=== PATIENT | female | born 1995 | race American Indian/Alaskan Native ===

== ENCOUNTER 2017-01-18 03:16 | Emergency (ER) | payer MEDICAID ==
[2017-01-18] MEDS ORDERED: TYLENOL ONE (03:35)
[2017-01-18 03:36] VITALS: BP 150/100
[2017-01-18] MEDS: TYLENOL PO ONE (03:39)
== END 2017-01-18 05:24 | disposition left against medical advice (07) ==
LOC: ED 03:16
DX: R07.9 Chest pain, unspecified (principal); Z53.21 Procedure and treatment not carried out due to patient leaving prior to being seen by health care provider
CPT/HCPCS: 93005; 93010

== ENCOUNTER 2017-01-18 12:46 | Emergency (ER) | payer MEDICAID ==
--- NOTE | 2017-01-18 16:44 | Emergency Department Report ---
HPI - General Chief Complaint: Upper Respiratory Infection Time Seen by Provider: 01/18/17 16:40 - HPI HPI: [id number] -English female comes in with complaint of productive cough with yellow mucus 1 week. Patient states that her chest is very sore after she coughs. She admits to fever and sore throat. Patient reports it is painful to swallow. Patient reports that she was seen here earlier this morning but left without being seen. She admits to nasal congestion and sneezing cough runny eyes. He presents here to travel her home ED Past Medical Hx - Past Medical History Previous Medical History?: No - Surgical History Past Surgical History?: No - Social History Smoking Status: Current Every Day Smoker Substance Use Type: None - Medications Home Medications: Home Medications Medication Instructions Recorded Confirmed Last Taken Type Azithromycin [Zithromax] 250 mg PO QDAY #6 tablet 01/18/17 Unknown Rx Cetirizine HCl [ZyrTEC] 10 mg PO QDAY #30 capsule 01/18/17 Unknown Rx Promethazine /Codeine 5 ml PO Q6H PRN #100 ml 01/18/17 Unknown Rx [Phenergan/Codeine 6.25-10 mg/5 ml] ED Review of Systems ROS: Stated complaint: COUGH/ CHEST PAIN Other details as noted in HPI Constitutional: chills, fever Eyes: eye pain ENT: throat pain Respiratory: cough Cardiovascular: chest pain Gastrointestinal: denies: abdominal pain, nausea, diarrhea Genitourinary: denies: urgency, dysuria, discharge Musculoskeletal: denies: back pain, joint swelling, arthralgia Physical Exam - Physical Exam Vital Signs: Vital Signs 01/18/17 13:07 Temperature 98.2 F Pulse Rate 86 Respiratory 20 Rate Blood Pressure 123/86 O2 Sat by Pulse 100 Oximetry Physical Exam: GENERAL: Alert and oriented x3, no apparent distress, Normal Gait, atraumatic. HEAD: Head is normocephalic and a-traumatic. EYES: Extra ocular muscles are intact. Pupils are equal, round, and reactive to light and accommodation. EARS: symetrical, atraumatic, non tender, ear canal clear and moderate cerumen, tympanic membrance non inflamed. gross auditory nml bilaterally. NOSE: Nose symetrical, Nontender,Nares appeared normal. MOUTH:Mouth is well hydrated and without lesions. Tonsils nonerythematous + swollen, _Uvula midline, Tongue not elevated. Mucous membranes are moist. Posterior pharynx clear, no exudate or lesions. Patent airways. NECK: Supple. Non edematous, No carotid bruits. No lymphadenopathy or thyromegaly. LUNGS: Symetrical with respiration, No wheezing, no rales or crackles, CTAB. Respiratory sounds HEART: S1, S2 present, regular rate and rhythm without murmur, no rubs, no gallops. EXTREMITIES/MUSCULOSKELETAL: No cyanosis, clubbing, rash, lesions or edema. Full ROM bilaterally. UELE Pulses 2+ bilaterally. LE and UE 5+ strength bilaterally NEUROLOGIC: No focal Deficit, Cranial nerves II through XII are grossly intact. No loss of sensation, No facial droop, PSYCHIATRIC: Mood is congruent with affect, denies suicidal or homicidal ideations. SKIN: Warm and dry, No lesions, No ulceration or induration present ED Course Vital Signs 01/18/17 13:07 Temperature 98.2 F Pulse Rate 86 Respiratory 20 Rate Blood Pressure 123/86 O2 Sat by Pulse 100 Oximetry - Reevaluation(s) Reevaluation #1: 01/18/17 17:53 Patient reports that she feels much better since having the [place]. ED Medical Decision Making - Medical Decision Making Assessment evaluated by this provider in fast track. We will order patient a [place] which she help with her cough as well as her chest pain and knee pain. We will discharge patient on antibiotics Claritin or Zyrtec's promethazine with codeine. She verbalized understanding Critical care attestation.: If time is entered above; I have spent that time in minutes in the direct care of this critically ill patient, excluding procedure time. ED Disposition Clinical Impression: URI (upper respiratory infection) Qualifiers: URI type: unspecified URI Qualified Code(s): J06.9 - Acute upper respiratory infection, unspecified Disposition: DISCHARGED TO HOME OR SELFCARE Is pt being admited?: No Does the pt Need Aspirin: No Condition: Stable Instructions: Upper Respiratory Infection (ED) Additional Instructions: Take antibiotics as prescribed using promethazine with codeine as prescribed take Zyrtec as prescribed. He did take Tylenol or Motrin for pain. Follow up to primary care provider we will refer you to one if he do not have one Prescriptions: Azithromycin [Zithromax] 250 mg PO QDAY #6 tablet Cetirizine HCl [ZyrTEC] 10 mg PO QDAY #30 capsule Promethazine /Codeine [Phenergan/Codeine 6.25-10 mg/5 ml] 5 ml PO Q6H PRN #100 ml PRN Reason: cough Referrals: PRIMARY CAREMD [Primary Care Provider] - 3-5 Days [facility] [Outside] - 3-5 Days DELIA SIBLEY MD [Staff Physician] - 3-5 Days Forms: Accompanied Note, Work/School Release Form(ED)
[2017-01-18] MEDS: NORCO 5/325 PO ONE (17:02)
[2017-01-18 18:08] VITALS: BP 121/84
== END 2017-01-18 18:06 | disposition home or self-care (01) ==
LOC: ED 12:46
DX: J06.9 Acute upper respiratory infection, unspecified (principal); F17.200 Nicotine dependence, unspecified, uncomplicated
CPT/HCPCS: 99282

== ENCOUNTER 2017-03-27 20:01 | Emergency (ER) | payer MEDICAID ==
[2017-03-27 20:19] VITALS: BP 118/72
[2017-03-27] MEDS ORDERED: TYLENOL ONE (21:23)
[2017-03-27] MEDS ORDERED: TYLENOL PO ONE (21:26)
--- NOTE | 2017-03-27 21:55 | Emergency Department Report ---
HPI - General Chief Complaint: Upper Respiratory Infection Time Seen by Provider: 03/27/17 22:35 - HPI HPI: Patient here reports that she has been having shaking in in her sleep, body aches and headache off and on and feels cold with sore throat at 10 out of 10. She also reports that she's been coughing. Denies any drooling or difficulty swallowing she just said it hurts when she swallows. She said this is been going on for 2 days. She also reports abdominal cramping on and off but none at present. Denies exposure to strep throat. She reported in triage that her stomach pain was severe but she is not having any stomach pain up in questioning. She says she took [id number] pain medication and it helps a little but sore throat came back. Denies any chest pain or shortness of breath. Denies any coughing, wheezing or stridor ED Past Medical Hx - Past Medical History Previous Medical History?: No - Surgical History Past Surgical History?: No - Family History Family history: no significant - Social History Smoking Status: Current Every Day Smoker Substance Use Type: None - Medications Home Medications: Home Medications Medication Instructions Recorded Confirmed Last Taken Type Azithromycin [Zithromax] 250 mg PO QDAY #6 tablet 01/18/17 Unknown Rx Cetirizine HCl [ZyrTEC] 10 mg PO QDAY #30 capsule 01/18/17 Unknown Rx Promethazine /Codeine 5 ml PO Q6H PRN #100 ml 01/18/17 Unknown Rx [Phenergan/Codeine 6.25-10 mg/5 ml] Ibuprofen [Motrin] 600 mg PO Q8H PRN #15 tablet 03/27/17 Unknown Rx Penicillin Vk [Veetids TAB] 500 mg PO TID #60 tablet 03/27/17 Unknown Rx ED Review of Systems ROS: Stated complaint: FLU SX/ABD PAIN Other details as noted in HPI Comment: All other systems reviewed and negative Constitutional: chills Eyes: denies: eye pain, eye discharge ENT: throat pain. denies: ear pain, congestion Respiratory: cough. denies: shortness of breath, SOB with exertion, SOB at rest , stridor, wheezing Cardiovascular: denies: chest pain, palpitations, edema, syncope Gastrointestinal: abdominal pain. denies: nausea, vomiting Genitourinary: denies: urgency, dysuria, frequency, hematuria, discharge Musculoskeletal: myalgia. denies: back pain, arthralgia Skin: denies: rash Neurological: headache. denies: numbness, paresthesias, confusion, abnormal gait, vertigo Physical Exam - Physical Exam Vital Signs: Vital Signs 03/27/17 20:13 Temperature 99.9 F H Pulse Rate 86 Respiratory 18 Rate Blood Pressure 118/72 O2 Sat by Pulse 100 Oximetry Vital Signs 03/27/17 03/27/17 20:13 23:21 Temperature 99.9 F H 99.0 F Pulse Rate 86 Respiratory 18 Rate Blood Pressure 118/72 O2 Sat by Pulse 100 Oximetry General: This is a 21-year-old female well-nourished well-developed in no acute distress. Physical Exam: Head: Normocephalic atraumatic Mouth: Moist, positive pharyngeal exudate and erythema. Uvula is midline and oral airway is patent. No facial swelling. No peritonsillar abscesses. Nose: NL mucosa. Maxillary and frontal sinuses nontender to palpate Neck: Supple, no C-spine tenderness, no tracheal deviation. Nontender to palpate. Positive anterior cervical adenopathy Ears: Bilateral TMs pearly garcia. Bilateral EAC without any redness swelling or drainage. Bilateral otitis nontender to palpate Abdomen: Soft, nontender to palpate in all quadrants, normal bowel sounds in all quadrant and negative CVA tenderness bilaterally. Neurological: GCS of 15, alert and oriented 3. Speech is clear and fluid. Normal gait. No motor or sensory deficit. Normal reflexes. No facial drooping. No pronator drift and negative Romberg. Eyes: Bilateral pupils equal and reactive to light, bilateral EOM intact. Bilateral sclera and conjunctiva without injection. Normal accommodation. No nystagmus Lungs: Clear to auscultate bilaterally no rhonchi wheezes or rales. Normal work of breathing extremity; No CCE. +2 pulses. No neurovascular compromise Cardiovascular: S1-S2, regular rate rhythm. No murmurs. Skin: clean Dry and intact no rash no lesions Psych: Normal mood and behavior ED Course Vital Signs 03/27/17 20:13 Temperature 99.9 F H Pulse Rate 86 Respiratory 18 Rate Blood Pressure 118/72 O2 Sat by Pulse 100 Oximetry Vital Signs 03/27/17 03/27/17 20:13 23:21 Temperature 99.9 F H 99.0 F Pulse Rate 86 Respiratory 18 Rate Blood Pressure 118/72 O2 Sat by Pulse 100 Oximetry - Reevaluation(s) Reevaluation #1: 03/27/17 23:26 Patient given Tylenol 650 mg in triage area and still complaining of sore throat. She was given Motrin 800 mg in emergency room and pain has diminished. ED Medical Decision Making - Lab Data Positive strep test - Medical Decision Making ED course: Patient complaining of sore throat and cough and amongst other complaint. Strep test positive. She received Tylenol 650 mg and triage area and Motrin 800 mg by mouth which relieved her pain. Patient instructions in discharge diagnosis and treatment plan. I gave her the option and I receiving Bicillin injection one time dose and emergency room or taken penicillin 3 times a day for 10 days. She did not want an injection and she'll take penicillin. Patient discharged home with prescription for penicillin VK and Motrin. Critical care attestation.: If time is entered above; I have spent that time in minutes in the direct care of this critically ill patient, excluding procedure time. ED Disposition Clinical Impression: Strep pharyngitis, Fever in adult, Myalgia Disposition: DISCHARGED TO HOME OR SELFCARE Is pt being admited?: No Does the pt Need Aspirin: No Condition: Stable Instructions: Strep Throat (ED), Fever in Adults (ED) Additional Instructions: gargle with salt water several times a day to relieve sore throat. Take Motrin as prescribed to help with sore throat Take penicillin VK 3 times a day as prescribed. Please make sure you take antibiotic until finished. F/U primary care physician and 3-5 days. Prescriptions: Ibuprofen [Motrin] 600 mg PO Q8H PRN #15 tablet PRN Reason: Pain Penicillin Vk [Veetids TAB] 500 mg PO TID #60 tablet Referrals: PRIMARY CARE, [Primary Care Provider] - 3-5 Days Forms: Accompanied Note, Work/School Release Form(ED)
[2017-03-27] MEDS ORDERED: MOTRIN PO ONE (23:21)
== END 2017-03-27 23:55 | disposition home or self-care (01) ==
LOC: ED 20:01
DX: J02.0 Streptococcal pharyngitis (principal); F17.200 Nicotine dependence, unspecified, uncomplicated
CPT/HCPCS: 87430; 99282

== ENCOUNTER 2018-06-09 19:08 | Emergency (ER) | payer SELFPAY ==
[2018-06-09 19:50] LABS: Basophils # (Auto) 0.1 K/mm3 (0.0-0.1); Basophils % (Auto) 0.4 % (0.0-1.8); Eosinophils # (Auto) 0.2 K/mm3 (0.0-0.4); Eosinophils % (Auto) 1.2 % (0.0-4.3); Hematocrit 35.2 % (30.3-42.9); Hemoglobin 11.7 gm/dl (10.1-14.3); Lymphocytes # (Auto) 2.8 K/mm3 (1.2-5.4); Lymphocytes % (Auto) 21.4 % (13.4-35.0); Mean Corpuscular HGB Conc 33 % (30-34); Mean Corpuscular Hemoglobin 29 pg (28-32); Mean Corpuscular Volume 88 fl (79-97); Monocytes # (Auto) 0.7 K/mm3 (0.0-0.8); Platelet Count 366 K/mm3 (140-440); Red Cell Distribution Width 14.1 % (13.2-15.2)
[2018-06-09 20:07] LABS: Alanine Aminotransferase 14 units/L (7-56); Albumin 4.3 g/dL (3.9-5); BUN/Creatinine Ratio 15; Blood Urea Nitrogen 9 mg/dL (7-17); Calcium 9.7 mg/dL (8.4-10.2); Hemolysis Index 16
[2018-06-09 22:38] VITALS: BP 124/76
[2018-06-09 23:00] LABS: Bilirubin,Urine NEG (Negative); Blood,Urine NEG (Negative); Color,Urine Yellow (Yellow); Mucus,Urine FEW /HPF; Protein,Urine <15 mg/dL mg/dL (Negative); Urobilinogen,Urine < 2.0 mg/dL (<2.0)
[2018-06-09 23:03] LABS: WBC,Urine < 1.0 /HPF (0.0-6.0)
[2018-06-09] MEDS ORDERED: NACL 0.9% 1000 ML 1,000 ML IV ONE (23:43)
--- NOTE | 2018-06-09 23:51 | Ultrasound Report ---
FINAL REPORT PROCEDURE: US OB < = 14 WEEKS FETUS TECHNIQUE: Real-time transabdominal sonography of the uterus, placenta, amniotic fluid, adnexa, and fetus was performed with image documentation. Measurements were obtained to determine age/size. M-mode Doppler was used to document heartbeat. CPT 03744 HISTORY: pain COMPARISON: No prior studies are available for comparison. FINDINGS: CRL: 3.4 mm, which corresponds to a gestational age of: 6 weeks, 0 days. Yolk Sac: Normal. Embryonic Cardiac Activity: 117 beats per minute Gestational Sac: Normal. Amniotic fluid: Normal. Cervix: Normal. Right Ovary: Measures 3.6 x 2.2 x 2.2 centimeters with normal echotexture. Normal Doppler signal is noted. Left Ovary: Measures 1.9 x 1.3 x 1.3 centimeters with normal echotexture and normal Doppler signal is Estimated delivery date: 02/02/2019 Uterus and adnexa: Normal. IMPRESSION: Single live intrauterine gestation at approximately 6 weeks and 0 days. EDC by US 02/02/2019
--- NOTE | 2018-06-09 23:52 | Ultrasound Report ---
FINAL REPORT PROCEDURE: US OB TRANSVAGINAL TECHNIQUE: Real-time transvaginal sonography of the uterus, placenta, amniotic fluid, adnexa, and fetus was performed with image documentation. Measurements were obtained to determine age/size. M-mode Doppler was used to document heartbeat. CPT 38835 HISTORY: pain COMPARISON: No prior studies are available for comparison. FINDINGS: CRL: 3.4 mm, which corresponds to a gestational age of: 6 weeks, 0 days. Yolk Sac: Normal. Embryonic Cardiac Activity: 117 beats per minute Gestational Sac: Normal. Amniotic fluid: Normal. Cervix: Normal. Right Ovary: Measures 3.6 x 2.2 x 2.2 centimeters with normal echotexture. Normal Doppler signal is noted. Left Ovary: Measures 1.9 x 1.3 x 1.3 centimeters with normal echotexture and normal Doppler signal is Estimated delivery date: 02/02/2019 Uterus and adnexa: Normal. IMPRESSION: Single live intrauterine gestation at approximately 6 weeks and 0 days. EDC by US 02/02/2019
--- NOTE | 2018-06-10 01:11 | Cat Scan Report ---
FINAL REPORT EXAM: CT ANGIO CHEST HISTORY: pain TECHNIQUE: A CT angiogram was obtained of the chest following the intravenous injection of 100 cc of Omnipaque 350. MIP sagittal and coronal reconstructions were reviewed. FINDINGS: The lungs are clear. There is no evidence of congestion. There is no evidence of pulmonary embolus or aortic dissection. The thoracic aorta is normal in caliber. The heart size is normal. Pericardial fluid is not seen. There is no evidence of adenopathy. In the upper abdomen the adrenal glands appear normal. Pleural fluid is not seen. At the thoracic inlet the thyroid gland appears normal. The skeletal structures appear well maintained IMPRESSION: No evidence of pulmonary embolus, aortic dissection, or vascular congestion. No acute process in the chest.
--- NOTE | 2018-06-10 02:10 | Emergency Department Report ---
ED Abdominal Pain HPI - General Chief Complaint: Chest Pain Stated Complaint: CHEST PAINSABD PAIN Time Seen by Provider: 06/09/18 21:16 Source: patient Mode of arrival: Ambulatory Limitations: No Limitations - Related Data Previous Rx's Medication Instructions Recorded Last Taken Type Azithromycin [Zithromax] 250 mg PO QDAY #6 tablet 01/18/17 Unknown Rx Cetirizine HCl [ZyrTEC] 10 mg PO QDAY #30 capsule 01/18/17 Unknown Rx Promethazine /Codeine 5 ml PO Q6H PRN #100 ml 01/18/17 Unknown Rx [Phenergan/Codeine 6.25-10 mg/5 ml] Ibuprofen [Motrin] 600 mg PO Q8H PRN #15 tablet 03/27/17 Unknown Rx Penicillin Vk [Veetids TAB] 500 mg PO TID #60 tablet 03/27/17 Unknown Rx Allergies Allergy/AdvReac Type Severity Reaction Status Date / Time No Known Allergies Allergy Verified 01/18/17 03:36 ED Review of Systems ROS: Stated complaint: CHEST PAINSABD PAIN Other details as noted in HPI ED Past Medical Hx - Past Medical History Previous Medical History?: No - Surgical History Past Surgical History?: No - Social History Smoking Status: Never Smoker Substance Use Type: None - Medications Home Medications: Home Medications Medication Instructions Recorded Confirmed Last Taken Type Azithromycin [Zithromax] 250 mg PO QDAY #6 tablet 01/18/17 Unknown Rx Cetirizine HCl [ZyrTEC] 10 mg PO QDAY #30 capsule 01/18/17 Unknown Rx Promethazine /Codeine 5 ml PO Q6H PRN #100 ml 01/18/17 Unknown Rx [Phenergan/Codeine 6.25-10 mg/5 ml] Ibuprofen [Motrin] 600 mg PO Q8H PRN #15 tablet 03/27/17 Unknown Rx Penicillin Vk [Veetids TAB] 500 mg PO TID #60 tablet 03/27/17 Unknown Rx ED Physical Exam - General Limitations: No Limitations ED Course Vital Signs 06/09/18 06/09/18 19:21 22:33 Temperature 98.9 F Pulse Rate 72 68 Respiratory 18 16 Rate Blood Pressure 137/77 Blood Pressure 124/76 [Left] O2 Sat by Pulse 100 98 Oximetry ED Medical Decision Making - Lab Data Result diagrams: 06/09/18 19:39 06/09/18 19:39 Critical care attestation.: If time is entered above; I have spent that time in minutes in the direct care of this critically ill patient, excluding procedure time. ED Disposition Clinical Impression: Abdominal pain affecting , Threatened in early Chest pain Qualifiers: Chest pain type: unspecified Qualified Code(s): R07.9 - Chest pain, unspecified Disposition: -01 TO HOME OR SELFCARE Is pt being admited?: No Condition: Stable Instructions: Chest Pain (ED), Threatened Miscarriage (ED) Referrals: PRIMARY CAREMD [Primary Care Provider] - 2-3 Days DAYSI LAIRD MD [Staff Physician] - 2-3 Days [facility] [Outside] - 2-3 Days [facility] MD [Staff Physician] - 2-3 Days Time of Disposition: 02:09
== END 2018-06-10 02:48 | disposition home or self-care (01) ==
LOC: ED 19:08
DX: O20.0 Threatened abortion (principal); O26.891 Other specified pregnancy related conditions, first trimester; R07.9 Chest pain, unspecified; Z3A.01 Less than 8 weeks gestation of pregnancy
CPT/HCPCS: 36415; 71275; 76801; 76817; 80053; 81001; 84484; 84702; 85025; 85379; 87086; 93005; 93010; 99284; J7030; Q9967

== ENCOUNTER 2018-08-01 15:00 | Emergency (ER) | payer MEDICAID ==
[2018-08-01 15:39] VITALS: BP 132/87
[2018-08-01 16:42] LABS: Basophils # (Auto) 0.1 K/mm3 (0.0-0.1); Basophils % (Auto) 0.4 % (0.0-1.8); Eosinophils # (Auto) 0.1 K/mm3 (0.0-0.4); Eosinophils % (Auto) 0.8 % (0.0-4.3); Hematocrit 34.9 % (30.3-42.9); Hemoglobin 11.6 gm/dl (10.1-14.3); Lymphocytes # (Auto) 2.3 K/mm3 (1.2-5.4); Lymphocytes % (Auto) 15.5 % (13.4-35.0); Mean Corpuscular HGB Conc 33 % (30-34); Mean Corpuscular Hemoglobin 30 pg (28-32); Mean Corpuscular Volume 89 fl (79-97); Platelet Count 373 K/mm3 (140-440); Red Blood Count 3.94 M/mm3 (3.65-5.03); Red Cell Distribution Width 14.1 % (13.2-15.2)
--- NOTE | 2018-08-01 17:55 | Emergency Department Report ---
Chief Complaint: Abdominal Pain Stated Complaint: ABD PAIN SHARP/VOMITING Time Seen by Provider: 08/01/18 17:47 - HPI History of Present Illness: Ms. Gomez is a 23-year-old who is currently 13 weeks presents with severe pelvic pain sharp with nausea and vomiting. She had an ultrasound at 4 weeks gestation. She was informed that she was at risk for miscarriage at the time. Labs ultrasound urine ordered. No current vaginal bleeding. - Exam Vital Signs: Vital Signs 08/01/18 15:34 Temperature 98.3 F Pulse Rate 91 H Respiratory 16 Rate Blood Pressure 132/87 O2 Sat by Pulse 100 Oximetry MSE screening note: Focused history and physical exam performed. Due to findings the following was ordered: ED Medical Decision Making - Lab Data Result diagrams: 08/01/18 15:45 ED Disposition for MSE Condition: Stable Instructions: Abdominal Pain (ED)
--- NOTE | 2018-08-01 18:02 | Emergency Department Report ---
ED Abdominal Pain HPI - General Chief Complaint: Abdominal Pain Stated Complaint: ABD PAIN SHARP/VOMITING Time Seen by Provider: 08/01/18 17:47 Source: patient, family Mode of arrival: Ambulatory Limitations: No Limitations - History of Present Illness Initial Comments: Ms. Spears is a 23-year-old who is currently 13 weeks presents with severe pelvic pain sharp with nausea and vomiting. She had an ultrasound at 4 weeks gestation. She was informed that she was at risk for miscarriage at the time. Patient says she has an appointment with [facility] on the she is having abdominal pain and because they told her that she is at risk at this for weeks gestation she was concerned. Patient denies any abdominal bleeding. She denies any vaginal bleeding or concern for STDs. Denies any urinary burning, frequency or urgency. Denies any back pain. Denies any fever or chills. Pain is 9 out of 10 to lower abdomen and crampy. Pain comes and goes no alleviating or exacerbating factors. No medication taken for pain. MD Complaint: abdominal pain Onset/Timin -: week(s) Location: suprapubic Radiation: none Migration to: no migration Severity scale (0 -10): 9 Quality: cramping Consistency: intermittent Improves With: nothing Worsens With: nothing Context: other (patient is ) Associated Symptoms: nausea, vomiting. denies: diarrhea, fever, chills, constipation, dysuria, hematemesis, hematochezia, melena, hematuria, anorexia, syncope Treatments Prior to Arrival: other (none) - Related Data LMP Date: 04/28/18 LMP (females 10-50): Previous Rx's Medication Instructions Recorded Last Taken Type Azithromycin [Zithromax] 250 mg PO QDAY #6 tablet 01/18/17 Unknown Rx Cetirizine HCl [ZyrTEC] 10 mg PO QDAY #30 capsule 01/18/17 Unknown Rx Promethazine /Codeine 5 ml PO Q6H PRN #100 ml 01/18/17 Unknown Rx [Phenergan/Codeine 6.25-10 mg/5 ml] Ibuprofen [Motrin] 600 mg PO Q8H PRN #15 tablet 03/27/17 Unknown Rx Penicillin Vk [Veetids TAB] 500 mg PO TID #60 tablet 03/27/17 Unknown Rx Allergies Allergy/AdvReac Type Severity Reaction Status Date / Time No Known Allergies Allergy Verified 01/18/17 03:36 ED Review of Systems ROS: Stated complaint: ABD PAIN SHARP/VOMITING Other details as noted in HPI Constitutional: denies: chills, fever Eyes: denies: eye pain ENT: denies: ear pain, throat pain, congestion Respiratory: denies: cough, shortness of breath, SOB with exertion, SOB at rest , stridor, wheezing Cardiovascular: denies: chest pain, palpitations, edema, syncope Gastrointestinal: abdominal pain, nausea, vomiting. denies: diarrhea, constipation, hematemesis, melena, hematochezia Genitourinary: denies: urgency, dysuria, frequency, hematuria, discharge Musculoskeletal: denies: back pain, joint swelling, arthralgia Skin: denies: rash, lesions Neurological: denies: headache, weakness, vertigo Hematological/Lymphatic: denies: easy bleeding, easy bruising ED Past Medical Hx - Past Medical History Previous Medical History?: Yes Additional medical history: Placenta Previa - Surgical History Past Surgical History?: No - Family History Family history: hypertension - Social History Smoking Status: Former Smoker Substance Use Type: None - Medications Home Medications: Home Medications Medication Instructions Recorded Confirmed Last Taken Type Azithromycin [Zithromax] 250 mg PO QDAY #6 tablet 01/18/17 Unknown Rx Cetirizine HCl [ZyrTEC] 10 mg PO QDAY #30 capsule 01/18/17 Unknown Rx Promethazine /Codeine 5 ml PO Q6H PRN #100 ml 01/18/17 Unknown Rx [Phenergan/Codeine 6.25-10 mg/5 ml] Ibuprofen [Motrin] 600 mg PO Q8H PRN #15 tablet 03/27/17 Unknown Rx Penicillin Vk [Veetids TAB] 500 mg PO TID #60 tablet 03/27/17 Unknown Rx ED Physical Exam - General Limitations: No Limitations General appearance: alert, in no apparent distress - Head Head exam: Present: atraumatic, normocephalic, normal inspection - Eye Eye exam: Present: normal appearance, PERRL, EOMI Pupils: Present: normal accommodation - ENT ENT exam: Present: normal exam, normal orophraynx, mucous membranes moist - Neck Neck exam: Present: normal inspection, full ROM. Absent: tenderness, lymphadenopathy - Respiratory Respiratory exam: Present: normal lung sounds bilaterally. Absent: respiratory distress, chest wall tenderness - Cardiovascular Cardiovascular Exam: Present: regular rate, normal rhythm, normal heart sounds. Absent: systolic murmur, diastolic murmur - GI/Abdominal GI/Abdominal exam: Present: soft, normal bowel sounds. Absent: distended, tenderness, guarding, rebound, rigid, mass, pulsatile mass, hernia - Extremities Exam Extremities exam: Present: normal inspection, full ROM, normal capillary refill , other (No cce. + 2 pulses in all extremities, no neurovascular compromise). Absent: tenderness, pedal edema, joint swelling, calf tenderness - Back Exam Back exam: Present: normal inspection, full ROM, other (ambulates without any difficulty). Absent: tenderness, CVA tenderness (R), CVA tenderness (L), muscle spasm, paraspinal tenderness, vertebral tenderness, rash noted - Neurological Exam Neurological exam: Present: alert, oriented X3, normal gait - Psychiatric Psychiatric exam: Present: normal affect, normal mood - Skin Skin exam: Present: warm, dry, intact, normal color. Absent: rash ED Course Vital Signs 08/01/18 15:34 Temperature 98.3 F Pulse Rate 91 H Respiratory 16 Rate Blood Pressure 132/87 O2 Sat by Pulse 100 Oximetry - Reevaluation(s) Reevaluation #1: 08/01/18 18:29 Patient had uneventful ED stay. She denies any nausea or vomiting since been in emergency room she said that had resolved. She denies any abdominal cramping at this time. She is stable and in no distress. Reevaluation #2: 08/01/18 21:29 Patient CBC and CMP is stable. Ultrasound is stable. She had no abdominal pain or nausea and vomiting since she has been in emergency room. 08/01/18 21:30 ED Medical Decision Making - Lab Data Result diagrams: 08/01/18 15:45 08/01/18 15:45 Lab Results 08/01/18 08/01/18 08/01/18 Range/Units 15:45 15:45 20:35 WBC 14.6 H (4.5-11.0) K/mm3 RBC 3.94 (3.65-5.03) M/mm3 Hgb 11.6 (10.1-14.3) gm/dl Hct 34.9 (30.3-42.9) % MCV 89 (79-97) fl MCH 30 (28-32) pg MCHC 33 (30-34) % RDW 14.1 (13.2-15.2) % Plt Count 373 (140-440) K/mm3 Lymph % (Auto) 15.5 (13.4-35.0) % [place] % (Auto) 7.0 (0.0-7.3) % Eos % (Auto) 0.8 (0.0-4.3) % Baso % (Auto) 0.4 (0.0-1.8) % Lymph # 2.3 (1.2-5.4) K/mm3 [place] # 1.0 H (0.0-0.8) K/mm3 Eos # 0.1 (0.0-0.4) K/mm3 Baso # 0.1 (0.0-0.1) K/mm3 Seg Neutrophils % 76.3 H (40.0-70.0) % Seg Neutrophils # 11.1 H (1.8-7.7) K/mm3 Sodium 139 (137-145) mmol/L Potassium 4.0 (3.6-5.0) mmol/L Chloride 103.1 (98-107) mmol/L Carbon Dioxide 22 (22-30) mmol/L Anion Gap 18 mmol/L BUN 8 (7-17) mg/dL Creatinine 0.4 L (0.7-1.2) mg/dL Estimated GFR > 60 ml/min BUN/Creatinine Ratio 20 % Glucose 62 L (65-100) mg/dL Calcium 9.8 (8.4-10.2) mg/dL Total Bilirubin 0.20 (0.1-1.2) mg/dL AST 16 (5-40) units/L ALT 16 (7-56) units/L Alkaline Phosphatase 63 (35-129) units/L Total Protein 7.4 (6.3-8.2) g/dL Albumin 4.3 (3.9-5) g/dL Albumin/Globulin Ratio 1.4 % Urine Color Yellow (Yellow) Urine Turbidity Clear (Clear) Urine pH 6.0 (5.0-7.0) Ur Specific [place] 1.018 (1.003-1.030) Urine Protein <15 mg/dl (Negative) mg/dL Urine Glucose (UA) Neg (Negative) mg/dL Urine Ketones Neg (Negative) mg/dL Urine Blood Neg (Negative) Urine Nitrite Neg (Negative) Urine Bilirubin Neg (Negative) Urine Urobilinogen < 2.0 (<2.0) mg/dL Ur Leukocyte Esterase Neg (Negative) Urine WBC (Auto) < 1.0 (0.0-6.0) /HPF Urine RBC (Auto) 2.0 (0.0-6.0) /HPF U Epithel Cells (Auto) 1.0 (0-13.0) /HPF Urine Mucus Few /HPF - Radiology Data Radiology results: report reviewed OB transabdominal dictated by radiologist and report reviewed by myself. Please see details below. Patient: WILFRED SPEARS MR#: [id number] : 1995 Acct:[id number] Age/Sex: 23 / F ADM Date: 08/01/18 Loc: ED Attending Dr: Ordering Physician: Nedra Alvarado MD Date of Service: 08/01/18 Procedure(s): US OB >= 14 weeks Fetus Accession Number(s): [id number] cc: Nedra Alvarado MD FINAL REPORT PROCEDURE: US OB gt; = 14 WEEKS FETUS TECHNIQUE: Real-time transabdominal sonography of the uterus, placenta, amniotic fluid, adnexa, and fetus was performed with image documentation. Measurements were obtained to determine age/size. M-mode Doppler was used to document heartbeat. CPT 39044 HISTORY: pelvic pain COMPARISON: 06/09/2018 FINDINGS: ADDITIONAL GESTATION: None. GENERAL: IUP: Single living intrauterine . Position: Transverse with head to the maternal left Placental position: Posterior, without previa. Amniotic fluid volume: Normal. MATERNAL: Uterus: Within normal limits. Cervical length: 4 cm. Internal Os: Closed. FETUS: Heart rate and rhythm: 161 beats per minute, regular MEASUREMENTS: BPD: 2.6 centimeters corresponding to 14 weeks and 4 days HC: 9.3 centimeters corresponding to 14 weeks and 2 days AC: 7.6 centimeters corresponding to 14 weeks and 1 day FL: 1.6 centimeters corresponding to 14 weeks and 4 days Mean Gestational Age (composite criteria): 14 weeks and 1 day Ratio biometry: Normal. Interval growth: Appropriate. Estimated Due Date): 01/29/2019 IMPRESSION: Single intrauterine gestation at 14 weeks and 1 day. Estimated due date: 01/29/2019. Transcribed By: [facility] [place]ictated By: RADHA MOHAMUD Electronically Authenticated By: RADHA MOHAMUD Signed Date/Time: 08/01/182001 DD/ 01 TD/TT: 08/01/182001 - Medical Decision Making This is a 23-year-old female who reports that she is and and an ultrasound at 4 weeks and they told her that she is at risk for having a miscarriage. She says she has a history of placenta previa and she is oriented. She says she has been having in abdominal cramping for 2 weeks with some nausea and vomiting and she has her OB appointment on 08/17/2018 and she did not want to wait. She does not have any vaginal bleeding. Diagnostics: OB transabdominal 14 weeks ultrasound shows single intrauterine gestation at 14 weeks and 1 day. No placental abnormality. Os is closed and heart tone is 161 bpm. uterus and cervix is normal. Amniotic fluid is normal. He is referred to report section for details on ultrasound report. CBC with mild elevation in white count at 14.1 with slight bacterial shift, CMP is normal and her urinalysis is normal. Assessment/plan 1: Abdominal pain and -resolved. OB ultrasound normal . IUP with no abnormality. Patient had no abdominal pain at present. 2: Nausea and vomiting in -no nausea or vomiting while in the emergency room. Encouraged to increase her fluid intake and to follow up with her OB doctor as scheduled on 08/17/2018 I Discussed lab report and ultrasound report with patient and gave her results. She seemed to be relieved. I discussed with her that she needs to keep her OB /[facility] visit on 08/17/2018. Patient says she does have a [facility] [facility]CH[employer]IC HELPER. She is taking care per patient. I discussed with her that if she has vaginal bleeding, increase in abdominal pain or nausea and vomiting continuously to return to the emergency room otherwise keep appointment with her [facility] HEL[facility] and continue to take vitamin. She voiced understanding and discharged home with her family. Vital signs stable, she is pain and nausea free. Referral to Dr. 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 - Differential Diagnosis ectopic , dehydration, UTI, abdominal pain and Critical care attestation.: If time is entered above; I have spent that time in minutes in the direct care of this critically ill patient, excluding procedure time. ED Disposition Clinical Impression: Abdominal pain during in second trimester, Nausea and vomiting during prior to 22 weeks gestation Disposition: DC-01 TO HOME OR SELFCARE Is pt being admited?: No Does the pt Need Aspirin: No Condition: Stable Instructions: Abdominal Pain in (ED), Acute Nausea and Vomiting (ED) Additional Instructions: Increasing her fluid intake to at least 2-3 L of water daily. Follow-up with [facility] as you say that he had an appointment on 08/17/2018 and if you do not have a AUTOMOBILE MECHANIC HELPER that he can schedule an appointment with Dr. Long. He is a further discharge instruction paperwork for details If you to follow up vaginal bleeding, return if abdominal pain and nausea and/ or vomiting that is not resolved, return to the emergency room. Referrals: LENARD LONG MD [Staff Physician] - 08/03/18 you are, [employer] as scheduled [Other] - 08/03/18 Forms: Work/School Release Form(ED)
--- NOTE | 2018-08-01 20:04 | Ultrasound Report ---
FINAL REPORT PROCEDURE: US OB > = 14 WEEKS FETUS TECHNIQUE: Real-time transabdominal sonography of the uterus, placenta, amniotic fluid, adnexa, and fetus was performed with image documentation. Measurements were obtained to determine age/size. M-mode Doppler was used to document heartbeat. CPT 45646 HISTORY: pelvic pain COMPARISON: 06/09/2018 FINDINGS: ADDITIONAL GESTATION: None. GENERAL: IUP: Single living intrauterine . Position: Transverse with head to the maternal left Placental position: Posterior, without previa. Amniotic fluid volume: Normal. MATERNAL: Uterus: Within normal limits. Cervical length: 4 cm. Internal Os: Closed. FETUS: Heart rate and rhythm: 161 beats per minute, regular MEASUREMENTS: BPD: 2.6 centimeters corresponding to 14 weeks and 4 days HC: 9.3 centimeters corresponding to 14 weeks and 2 days AC: 7.6 centimeters corresponding to 14 weeks and 1 day FL: 1.6 centimeters corresponding to 14 weeks and 4 days Mean Gestational Age (composite criteria): 14 weeks and 1 day Ratio biometry: Normal. Interval growth: Appropriate. Estimated Due Date): 01/29/2019 IMPRESSION: Single intrauterine gestation at 14 weeks and 1 day. Estimated due date: 01/29/2019.
[2018-08-01 20:56] LABS: Bilirubin,Urine NEG (Negative); Blood,Urine NEG (Negative); Color,Urine Yellow (Yellow); Mucus,Urine FEW /HPF; Protein,Urine <15 mg/dL mg/dL (Negative); Urobilinogen,Urine < 2.0 mg/dL (<2.0); WBC,Urine < 1.0 /HPF (0.0-6.0)
[2018-08-01 21:21] LABS: Alanine Aminotransferase 16 units/L (7-56); Albumin 4.3 g/dL (3.9-5); BUN/Creatinine Ratio 20; Blood Urea Nitrogen 8 mg/dL (7-17); Calcium 9.8 mg/dL (8.4-10.2); Hemolysis Index 2
== END 2018-08-01 21:54 | disposition home or self-care (01) ==
LOC: ED 15:00
DX: O21.8 Other vomiting complicating pregnancy (principal); O26.892 Other specified pregnancy related conditions, second trimester; R10.30 Lower abdominal pain, unspecified; Z3A.14 14 weeks gestation of pregnancy; Z87.891 Personal history of nicotine dependence
CPT/HCPCS: 36415; 76805; 80053; 81001; 85025

== ENCOUNTER 2018-11-23 11:59 | Outpatient (CLI) | payer MEDICAID ==
[2018-11-23] MEDS ORDERED: LACTATED RINGERS 500 ML IV ONE (13:27)
[2018-11-23 13:44] LABS: Bacteria,Urine 1+ /HPF (Negative); Bilirubin,Urine NEG (Negative); Blood,Urine NEG (Negative); Color,Urine Yellow (Yellow); Mucus,Urine FEW /HPF; Protein,Urine <15 mg/dL mg/dL (Negative); Urobilinogen,Urine < 2.0 mg/dL (<2.0); WBC,Urine < 1.0 /HPF (0.0-6.0)
[2018-11-23 14:54] VITALS: BP 125/69
== END 2018-11-23 15:05 | disposition home or self-care (01) ==
LOC: TRG 11:59
PROVIDERS: ATTEND Obstetrics & Gynecology
DX: O47.03 False labor before 37 completed weeks of gestation, third trimester (principal); O13.3 Gestational [pregnancy-induced] hypertension without significant proteinuria, third trimester; Z3A.29 29 weeks gestation of pregnancy
CPT/HCPCS: 59025; 81001; 96360; J7120

== ENCOUNTER 2019-01-02 13:37 | Outpatient (CLI) | payer MEDICAID ==
[2019-01-02] MEDS ORDERED: LACTATED RINGERS 500 ML IV ONE (14:20)
[2019-01-02 14:38] VITALS: BP 118/64
[2019-01-02 16:31] LABS: Bacteria,Urine 1+ /HPF (Negative); Bilirubin,Urine NEG (Negative); Blood,Urine NEG (Negative); Color,Urine Yellow (Yellow); Mucus,Urine FEW /HPF; Protein,Urine <15 mg/dL mg/dL (Negative); RBC,Urine < 1.0 /HPF (0.0-6.0); Urobilinogen,Urine < 2.0 mg/dL (<2.0)
== END 2019-01-02 18:31 | disposition home or self-care (01) ==
LOC: TRG 13:37
PROVIDERS: ATTEND Obstetrics & Gynecology
DX: O47.03 False labor before 37 completed weeks of gestation, third trimester (principal); O13.3 Gestational [pregnancy-induced] hypertension without significant proteinuria, third trimester; Z3A.35 35 weeks gestation of pregnancy
CPT/HCPCS: 59025; 81001; 96360; J7120

== ENCOUNTER 2019-01-12 13:52 | Outpatient (CLI) | payer MEDICAID ==
[2019-01-12] MEDS ORDERED: LACTATED RINGERS 500 ML IV ONE (14:38)
[2019-01-12 15:13] LABS: Hematocrit 31.4 % (30.3-42.9); Hemoglobin 10.4 gm/dl (10.1-14.3); Mean Corpuscular HGB Conc 33 % (30-34); Mean Corpuscular Volume 88 fl (79-97); Platelet Count 320 K/mm3 (140-440); Red Blood Count 3.56 M/mm3 (3.65-5.03); Red Cell Distribution Width 15.5 % (13.2-15.2)
[2019-01-12 15:34] LABS: Alanine Aminotransferase 13 units/L (7-56); Uric Acid 3.4 mg/dL (3.5-7.6)
[2019-01-12 15:34] LABS: Bilirubin,Urine NEG (Negative); Blood,Urine NEG (Negative); Color,Urine Yellow (Yellow); Mucus,Urine FEW /HPF; Protein,Urine <15 mg/dL mg/dL (Negative); Urobilinogen,Urine < 2.0 mg/dL (<2.0); WBC,Urine < 1.0 /HPF (0.0-6.0)
[2019-01-12 17:00] VITALS: BP 114/66
== END 2019-01-12 17:15 | disposition home or self-care (01) ==
LOC: TRG 13:52
PROVIDERS: ATTEND Obstetrics & Gynecology
DX: O47.03 False labor before 37 completed weeks of gestation, third trimester (principal); O13.3 Gestational [pregnancy-induced] hypertension without significant proteinuria, third trimester; Z3A.37 37 weeks gestation of pregnancy
CPT/HCPCS: 36415; 59025; 81001; 82565; 83615; 84450; 84460; 84550; 85027

== ENCOUNTER 2019-01-13 18:16 | Outpatient (CLI) | payer MEDICAID ==
[2019-01-13 18:40] VITALS: BP 122/73
--- NOTE | 2019-01-13 21:38 | Ultrasound Report ---
PROCEDURE: US OB FOLLOW UP HISTORY: DOMO, EFW FINDINGS: Real-time ultrasound of the pelvis was performed with transabdominal technique. There is a live intrauterine gestation in cephalic lie, with amniotic fluid index of 11.1 cm. There i s an anterior fundal placenta, grade 1. cardiac activity is present at 154 bpm. Biparietal diameter was 9.2 cm corresponds to 37 weeks and 3 days. Head circumference was 33.3 cm which corresponds to 38 weeks and 0 days. Abdominal circumference was 33.8 cm which corresponds to 37 weeks and 4 days. Femur length is 7.4 cm which corresponds to 37 weeks and 1 day. Estimated weight was 3241 cm. IMPRESSION: Single live intrauterine gestation of approximately 37 weeks and 4 days, in cephalic lie This document is electronically signed by Cholo Sandoval MD., January 13 2019 09:36:10 PM ET
--- NOTE | 2019-01-13 21:43 | Ultrasound Report ---
PROCEDURE: US OB BPP WO NON-STRESS HISTORY: well being FINDINGS: Biophysical profile was performed by transabdominal technique. Biophysical profile was 8 ou t of 8. cardiac activity is present at 154 bpm. IMPRESSION: Biophysical profile 8 of 8 This document is electronically signed by Cholo Sandoval MD., January 13 2019 09:41:00 PM ET
--- NOTE | 2019-01-13 22:04 | Progress Note ---
Assessment and Plan A: at 37 weeks, 1 day gestation. Not in active labor (no cervical change on cervix recheck). BPP 8/8 with normal DOMO and normal EFW. P: Patient to return tomorrow afternoon for repeat NST. Advised patient to perform daily movement counting. Signs of labor and warning signs discussed with patient. Consulted Dr. Lassiter re: this patient and Dr. Lassiter states OK to discharge patient home and have her follow up for repeat NST tomorrow. Subjective - Subjective Date of service: 01/13/19 Principal diagnosis: at 37 1/7 weeks; rule out labor Interval history: 23 year old presents at 37 1/7 weeks to rule out labor. Patient reports contractions beginning several hours ago. She denies leaking of fluid or vaginal bleeding. She reports active movement. She denies headaches or swelling or visual disturbance. Patient reports: movement normal, contractions, no new complaints, no loss of fluid, no vaginal bleeding Objective - Vital Signs Vital Signs: Vital Signs - 12hr 01/13/19 01/13/19 18:39 18:41 Temperature 97.9 F Pulse Rate 96 H 96 H Respiratory 18 Rate Blood Pressure 122/73 - Exam Abdomen: Present: normal appearance, soft. Absent: distention, tenderness, guarding, rigidity Uterus: Present: normal, fundal height above umbilicus. Absent: tenderness FHR: category 1 Uterine Contraction Monitor Mode: External Cervical Dilatation: 1 Cervical Effacement Percentage: 30 station: -3 Uterine Contraction Pattern: Irregular Uterine Contraction Intensity: Mild Extremities: normal
== END 2019-01-13 22:01 | disposition home or self-care (01) ==
LOC: TRG 18:16
PROVIDERS: ATTEND Obstetrics & Gynecology
DX: O47.03 False labor before 37 completed weeks of gestation, third trimester (principal); O13.3 Gestational [pregnancy-induced] hypertension without significant proteinuria, third trimester; Z87.891 Personal history of nicotine dependence; Z3A.37 37 weeks gestation of pregnancy
CPT/HCPCS: 59025; 76816; 76819

== ENCOUNTER 2019-01-14 17:59 | Outpatient (CLI) | payer MEDICAID ==
--- NOTE | 2019-01-14 19:15 | Progress Note ---
Assessment and Plan A: at 37 2/7 weeks gestation. Reactive NST. P: Advised patient to continue daily movement counting and to follow up as scheduled with [facility] office tomorrow. Subjective - Subjective Date of service: 01/14/19 Principal diagnosis: at 37 weeks, 2 days gestation Interval history: 23 year old presents at 37 2/7 weeks gestation presents for repeat NST. Patient reports active movement. She denies leaking of fluid, vaginal bleeding, or abdominal pain. She reports irregular mild contractions. Patient reports: movement normal, contractions, no loss of fluid, no vaginal bleeding Objective - Vital Signs Vital Signs: Vital Signs - 12hr 01/14/19 18:34 Temperature 98.4 F Pulse Rate 84 Respiratory 20 Rate Blood Pressure 117/71 [Left] - Exam Abdomen: Present: normal appearance, soft. Absent: distention, tenderness, guarding, rigidity Uterus: Present: normal, fundal height above umbilicus FHR: category 1 Uterine Contraction Monitor Mode: External Cervical Dilatation: 1 Cervical Effacement Percentage: 40 station: -3 Uterine Contraction Pattern: Irregular Uterine Contraction Intensity: Mild
== END 2019-01-14 19:15 | disposition home or self-care (01) ==
LOC: TRG 17:59
CPT/HCPCS: 59025

== ENCOUNTER 2019-01-17 18:15 | Outpatient (CLI) | payer MEDICAID ==
[2019-01-17 20:35] VITALS: BP 125/66
[2019-01-17] MEDS ORDERED: VISTARIL PO ONE (21:32)
== END 2019-01-17 21:45 | disposition home or self-care (01) ==
LOC: TRG 18:15
PROVIDERS: ATTEND Obstetrics & Gynecology
DX: O47.03 False labor before 37 completed weeks of gestation, third trimester (principal); Z3A.37 37 weeks gestation of pregnancy
CPT/HCPCS: 59025; Q0177

== ENCOUNTER 2019-01-18 20:57 | Inpatient (IN) | payer MEDICAID ==
[2019-01-19] MEDS ORDERED: STADOL ONE (01:20)
[2019-01-19] MEDS ORDERED: LACTATED RINGERS 1,000 ML ONE (01:24)
[2019-01-19] MEDS ORDERED: PHENERGAN PO PRN ×2 (02:08→18:12)
[2019-01-19] MEDS ORDERED: BRETHINE IVP PRN (02:08)
[2019-01-19] MEDS ORDERED: NARCAN 0.4 MG/1 ML IV PRN (02:08)
[2019-01-19] MEDS ORDERED: XYLOCAINE 2% INFILTRATI ONE (02:08)
[2019-01-19] MEDS ORDERED: MINERAL OIL PO PRN (02:08)
[2019-01-19] MEDS ORDERED: BRETHINE SUB-Q PRN (02:08)
[2019-01-19] MEDS ORDERED: SUBLIMAZE IV PRN (02:08)
[2019-01-19] MEDS ORDERED: ZOFRAN IV PRN ×2 (02:08→18:12)
--- NOTE | 2019-01-19 02:14 | History and Physical Report ---
History of Present Illness Date of examination: 01/19/19 Date of admission: 01/19/2019 Chief complaint: Intense labor pains History of present illness: 23 yo AA Fe , FRANCESCA 01/29/2019 (per pt; PNR not available), 38weeks 4days presents in active labor. Pt reports care with [facility] (records requested). Denies any medical problems. 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 denies: smoking, alcohol abuse, prescription drug abuse, IV drug use - Obstetrical History Expected Date of Delivery: 01/29/19 Actual Gestation: 38 Week(s) 4 Day(s) : 3 Para: 2 Hx # Term Pregnancies: 2 Number of Pregnancies: 0 Spontaneous Abortions: 0 Induced : 0 Number of Living Children: 2 Medications and Allergies Allergies Allergy/AdvReac Type Severity Reaction Status Date / Time No Known Allergies Allergy Verified 01/17/19 21:32 Home Medications Medication Instructions Recorded Confirmed Last Taken Type Vit,Calc76/Iron/Folic 1 each PO DAILY 11/22/18 01/14/19 01/13/19 09:00 History [Pnv 29-1 Tablet] 1 Active Meds: Active Medications Ephedrine Sulfate (Ephedrine Sulfate) 10 mg IV Q2M PRN PRN Reason: Hypotension Review of Systems Eyes: normal appearance Cardiovascular: no chest pain, no shortness of breath Respiratory: no shortness of breath Breasts: normal Gastrointestinal: no nausea, no vomiting, no diarrhea, no constipation Genitourinary: normal appearance, vaginal discharge (mucous), contractions, no vaginal bleeding, no leakage of fluid, no genital sores Integumentary: no rash, no sores, no lesions Neurological: other (Denies) Psychiatric: other (Denies) - Vital Signs Vital signs: Vital Signs Pulse BP 86 137/81 01/18/19 22:16 01/18/19 22:16 Temp Pulse Resp BP Pulse Ox 88 138/81 01/19/19 01:55 01/19/19 01:55 - Physical Exam Breasts: Positive: normal Cardiovascular: Regular rate, Normal S1, Normal S2, No murmurs Lungs: Positive: Clear to auscultation, Normal air movement Abdomen: Positive: normal appearance, soft, normal bowel sounds. Negative: distention Genitourinary (Female): Positive: normal external genitalia, normal perenium Vulva: both: normal Vagina: Positive: normal moisture, discharge (Mucous, small amt bloody show) Uterus: Positive: enlarged (gravid) Anus/Rectum: Positive: normal perianal skin Extremities: Positive: normal Deep Tendon Reflex Grade: Normal +2 - Obstetrical FHR: category 1 Uterine Contraction Monitor Mode: External Cervical Dilatation: 5 (Cervix posterior) Cervical Effacement Percentage: 80 station: -3 Uterine Contraction Frequency (min): 2-3 Uterine Contraction Duration: 60-90 Uterine Contraction Pattern: Regular Uterine Tone Measurement Phase: Resting Uterine Contraction Intensity: Moderate Results Result Diagrams: 01/19/19 01:35 All other labs normal. Assessment and Plan A: Term at IUP Active labor GBS Negative Category 1 tracing P: Admit to L&D; Routine labor orders IV pain med/Epidural PRN Anticipate
[2019-01-19] MEDS ORDERED: LACTATED RINGERS 1,000 ML IV SCH (03:00)
[2019-01-19] MEDS ORDERED: PITOCin/NS 20 UNIT/1000ML DRIP 20 UNITS/1,000 ML BAG IV SCH (03:00)
[2019-01-19] MEDS ORDERED: STADOL IV ONE (03:04)
[2019-01-19 04:02] LABS: Hematocrit 34.1 % (30.3-42.9); Hemoglobin 11.3 gm/dl (10.1-14.3); Mean Corpuscular HGB Conc 33 % (30-34); Mean Corpuscular Volume 88 fl (79-97); Platelet Count 324 K/mm3 (140-440); Red Blood Count 3.89 M/mm3 (3.65-5.03); Red Cell Distribution Width 15.3 % (13.2-15.2)
[2019-01-19] MEDS ORDERED: PITOCin/NS 30 UNIT/500ML 30,000 MILLIUNITS/500 ML BAG IV ONE (08:34)
[2019-01-19] MEDS ORDERED: PITOCin/NS 30 UNIT/500ML 30 UNITS/500 ML BAG IV SCH (09:00)
[2019-01-19] MEDS ORDERED: NARCAN 2 MG/2 ML IV PRN (12:43)
--- NOTE | 2019-01-19 12:43 | Anesthesia Consultation ---
Anesthesia Consult and Med Hx Date of service: 01/19/19 - Airway Anesthetic Teeth Evaluation: Good ROM Head & Neck: Adequate Mental/Hyoid Distance: Adequate Mallampati Class: Class III Intubation Access Assessment: Possibly Difficult - Pre-Operative Health Status ASA Pre-Surgery Classification: ASA3 Proposed Anesthetic Plan: Epidural, Spinal - Pulmonary Hx Asthma: No COPD: No Hx Pneumonia: No - Cardiovascular System Hx Hypertension: No - Central Nervous System Hx Seizures: No Hx Psychiatric Problems: No - Endocrine Hx Renal Disease: No Hx End Stage Renal Disease: No Hx Hypothyroidism: No Hx Hyperthyroidism: No - Hematic Hx Anemia: No Hx Sickle Cell Disease: No - Other Systems Hx Alcohol Use: No
[2019-01-19] MEDS ORDERED: fentaNYL-BUPIV 2 MCG/ML-0.125% 200 MCG/100 ML BAG EPIDURAL SCH (13:00)
[2019-01-19] MEDS ORDERED: AMPICILLIN/NS 2 GM/100 ML 2 GM/100 ML BAG IV ONE (13:19)
--- NOTE | 2019-01-19 17:03 | Progress Note ---
Assessment and Plan A: Term at IUP: 38w0d Active labor GBS unknown Category 2 tracing Comfortable with epidural LGA P: Routine labor orders GBS prophylaxis Anticipate Subjective - Subjective Date of service: 01/19/19 Interval history: records received. FRANCESCA 02/02/2019, 38weeks 0days. LGA/macrosomnia per [facility] 01/09/2019 EFW 100%. GBS unknown Patient reports: loss of fluid (continues to leak clear fluid), movement normal, other (comfortable with epidural) Objective - Vital Signs Vital Signs: Vital Signs - 12hr 01/19/19 01/19/19 01/19/19 04:56 04:58 05:03 Pulse Rate 75 84 Respiratory 18 Rate Blood Pressure O2 Sat by Pulse 98 98 Oximetry 01/19/19 01/19/19 01/19/19 05:08 05:13 05:18 Pulse Rate 82 80 82 Respiratory Rate Blood Pressure O2 Sat by Pulse 97 97 97 Oximetry 01/19/19 01/19/19 01/19/19 05:23 05:28 05:33 Pulse Rate 81 88 79 Respiratory Rate Blood Pressure O2 Sat by Pulse 97 98 98 Oximetry 01/19/19 01/19/19 01/19/19 05:38 05:43 05:48 Pulse Rate 80 89 82 Respiratory Rate Blood Pressure O2 Sat by Pulse 98 98 98 Oximetry 01/19/19 01/19/19 01/19/19 05:53 05:58 06:03 Pulse Rate 86 81 89 Respiratory Rate Blood Pressure O2 Sat by Pulse 98 98 98 Oximetry 01/19/19 01/19/19 01/19/19 06:08 06:13 06:18 Pulse Rate 89 84 82 Respiratory Rate Blood Pressure O2 Sat by Pulse 99 98 97 Oximetry 01/19/19 01/19/19 01/19/19 06:23 06:28 06:33 Pulse Rate 83 84 84 Respiratory Rate Blood Pressure O2 Sat by Pulse 97 97 99 Oximetry 01/19/19 01/19/19 01/19/19 06:38 06:43 06:48 Pulse Rate 86 85 86 Respiratory Rate Blood Pressure O2 Sat by Pulse 99 98 99 Oximetry 01/19/19 01/19/19 01/19/19 06:53 06:58 07:03 Pulse Rate 85 88 89 Respiratory Rate Blood Pressure O2 Sat by Pulse 97 96 97 Oximetry 01/19/19 01/19/19 01/19/19 07:08 07:10 07:13 Pulse Rate 96 H 86 89 Respiratory Rate Blood Pressure 135/84 O2 Sat by Pulse 98 97 Oximetry 01/19/19 01/19/19 01/19/19 07:18 07:23 07:28 Pulse Rate 83 83 77 Respiratory Rate Blood Pressure O2 Sat by Pulse 97 96 96 Oximetry 01/19/19 01/19/19 01/19/19 07:33 07:38 07:43 Pulse Rate 82 85 84 Respiratory Rate Blood Pressure O2 Sat by Pulse 96 96 97 Oximetry 01/19/19 01/19/19 01/19/19 07:48 07:53 07:58 Pulse Rate 84 80 94 H Respiratory Rate Blood Pressure O2 Sat by Pulse 97 97 96 Oximetry 01/19/19 01/19/19 01/19/19 09:12 09:42 10:13 Pulse Rate 84 78 83 Respiratory Rate Blood Pressure 117/72 112/66 123/76 O2 Sat by Pulse Oximetry 01/19/19 01/19/19 01/19/19 10:43 11:13 11:44 Pulse Rate 88 88 86 Respiratory Rate Blood Pressure 118/82 136/89 133/78 O2 Sat by Pulse Oximetry 01/19/19 01/19/19 01/19/19 12:14 12:42 12:43 Pulse Rate 81 115 H 104 H Respiratory Rate Blood Pressure 123/76 147/70 O2 Sat by Pulse 99 Oximetry 01/19/19 01/19/19 01/19/19 12:46 12:48 12:50 Pulse Rate 100 H 98 H 89 Respiratory Rate Blood Pressure 138/67 138/79 134/74 O2 Sat by Pulse 75 L 98 Oximetry 01/19/19 01/19/19 01/19/19 12:52 12:53 12:54 Pulse Rate 88 95 H 104 H Respiratory Rate Blood Pressure 137/70 131/64 O2 Sat by Pulse 98 Oximetry 01/19/19 01/19/19 01/19/19 12:56 12:57 12:58 Pulse Rate 90 95 H 85 Respiratory Rate Blood Pressure 124/65 134/73 O2 Sat by Pulse 91 99 Oximetry 01/19/19 01/19/19 01/19/19 13:00 13:02 13:03 Pulse Rate 87 86 88 Respiratory Rate Blood Pressure 129/73 129/70 O2 Sat by Pulse 98 Oximetry 01/19/19 01/19/19 01/19/19 13:04 13:06 13:08 Pulse Rate 82 84 96 H Respiratory Rate Blood Pressure 127/67 122/62 123/61 O2 Sat by Pulse 100 Oximetry 01/19/19 01/19/19 01/19/19 13:10 13:12 13:13 Pulse Rate 85 88 91 H Respiratory Rate Blood Pressure 118/60 123/64 O2 Sat by Pulse 99 Oximetry 01/19/19 01/19/19 01/19/19 13:14 13:16 13:18 Pulse Rate 93 H 80 81 Respiratory Rate Blood Pressure 127/65 128/67 125/64 O2 Sat by Pulse 100 Oximetry 01/19/19 01/19/19 01/19/19 13:20 13:22 13:24 Pulse Rate 82 86 82 Respiratory Rate Blood Pressure 133/68 129/68 130/67 O2 Sat by Pulse 100 Oximetry 01/19/19 01/19/19 01/19/19 13:26 13:28 13:30 Pulse Rate 77 80 79 Respiratory Rate Blood Pressure 128/65 126/67 124/65 O2 Sat by Pulse 100 Oximetry 01/19/19 01/19/19 01/19/19 13:33 13:39 13:44 Pulse Rate 82 78 82 Respiratory Rate Blood Pressure O2 Sat by Pulse 100 100 100 Oximetry 01/19/19 01/19/19 01/19/19 13:46 13:48 13:53 Pulse Rate 80 83 85 Respiratory Rate Blood Pressure 129/70 O2 Sat by Pulse 100 100 Oximetry 01/19/19 01/19/19 01/19/19 13:58 14:02 14:04 Pulse Rate 84 80 82 Respiratory Rate Blood Pressure 122/65 O2 Sat by Pulse 100 98 Oximetry 01/19/19 01/19/19 01/19/19 14:09 14:14 14:17 Pulse Rate 83 76 76 Respiratory Rate Blood Pressure 120/63 O2 Sat by Pulse 98 98 Oximetry 01/19/19 01/19/19 01/19/19 14:19 14:23 14:29 Pulse Rate 79 82 79 Respiratory Rate Blood Pressure O2 Sat by Pulse 98 97 98 Oximetry 01/19/19 01/19/19 01/19/19 14:31 14:34 14:38 Pulse Rate 83 79 78 Respiratory Rate Blood Pressure 123/67 O2 Sat by Pulse 97 98 Oximetry 01/19/19 01/19/19 01/19/19 14:44 14:46 14:49 Pulse Rate 79 78 84 Respiratory Rate Blood Pressure 92/55 O2 Sat by Pulse 97 90 98 Oximetry 01/19/19 01/19/19 01/19/19 14:54 14:59 15:02 Pulse Rate 81 83 82 Respiratory Rate Blood Pressure 112/64 O2 Sat by Pulse 98 98 Oximetry 01/19/19 01/19/19 01/19/19 15:03 15:09 15:14 Pulse Rate 88 91 H 76 Respiratory Rate Blood Pressure O2 Sat by Pulse 99 99 98 Oximetry 01/19/19 01/19/19 01/19/19 15:16 15:19 15:24 Pulse Rate 83 83 82 Respiratory Rate Blood Pressure 111/60 O2 Sat by Pulse 98 99 Oximetry 01/19/19 01/19/19 01/19/19 15:29 15:32 15:34 Pulse Rate 75 89 85 Respiratory Rate Blood Pressure 121/71 O2 Sat by Pulse 99 100 Oximetry 01/19/19 01/19/19 01/19/19 15:39 15:44 15:46 Pulse Rate 76 81 82 Respiratory Rate Blood Pressure 121/70 O2 Sat by Pulse 100 100 Oximetry 01/19/19 01/19/19 01/19/19 15:49 15:54 15:59 Pulse Rate 81 78 80 Respiratory Rate Blood Pressure O2 Sat by Pulse 100 100 100 Oximetry 01/19/19 01/19/19 01/19/19 16:01 16:03 16:04 Pulse Rate 88 56 L 98 H Respiratory Rate Blood Pressure 123/75 O2 Sat by Pulse 26 L 100 Oximetry 01/19/19 01/19/19 01/19/19 16:09 16:14 16:17 Pulse Rate 83 87 90 Respiratory Rate Blood Pressure 133/66 O2 Sat by Pulse 100 100 Oximetry 01/19/19 01/19/19 01/19/19 16:19 16:24 16:29 Pulse Rate 88 82 98 H Respiratory Rate Blood Pressure O2 Sat by Pulse 100 100 99 Oximetry 01/19/19 01/19/19 01/19/19 16:31 16:34 16:39 Pulse Rate 99 H 96 H 90 Respiratory Rate Blood Pressure 129/65 O2 Sat by Pulse 100 100 Oximetry 01/19/19 01/19/19 01/19/19 16:45 16:46 16:50 Pulse Rate 101 H 89 95 H Respiratory Rate Blood Pressure 136/68 O2 Sat by Pulse 100 100 Oximetry - Exam Breasts: normal Cardiovascular: Regular rate, Normal S1, Normal S2, No murmurs Abdomen: Present: other (gravid) Vulva: both: normal FHR: category 2 Uterine Contraction Monitor Mode: External Cervical Dilatation: 7 Cervical Effacement Percentage: 75 station: -1 Uterine Contraction Frequency (min): 2-4 Uterine Contraction Pattern: Regular Uterine Tone Measurement Phase: Resting Uterine Contraction Intensity: Strong/Firm - Labs Labs: Abnormal Labs 01/19/19 01:35 WBC 11.6 H RDW 15.3 H Laboratory Results - last 24 hr 01/19/19 01/19/19 01/19/19 01:35 01:35 01:35 WBC 11.6 H RBC 3.89 Hgb 11.3 Hct 34.1 MCV 88 MCH 29 MCHC 33 RDW 15.3 H Plt Count 324 RPR Nonreactive Blood Type A POSITIVE Antibody Screen Negative
[2019-01-19] MEDS ORDERED: AMPICILLIN/NS 1 GM/50 ML 1 GM/50 ML BAG IV SCH (17:30)
[2019-01-19] MEDS ORDERED: MILK OF MAGNESIA PO PRN (18:12)
[2019-01-19] MEDS ORDERED: DULCOLAX PR PRN (18:12)
[2019-01-19] MEDS ORDERED: TUCKS PAD TP PRN (18:12)
[2019-01-19] MEDS ORDERED: TYLENOL PO PRN (18:12)
[2019-01-19] MEDS ORDERED: BENADRYL PO PRN (18:12)
[2019-01-19] MEDS ORDERED: LANSINOH TP PRN (18:12)
--- NOTE | 2019-01-19 18:33 | Procedure Note ---
OB Delivery Note - Delivery Date of Delivery: 01/19/19 (17:47) Surgeon: JANINE RIBERA (DERECK) Estimated blood loss: 200cc - Vaginal Delivery presentation: vertex Delivery position: OA Intrapartum events: mult.variable deceleratio Delivery induction: none Delivery augmentation: pitocin Delivery monitor: external uterine, internal FHT Route of delivery: (17:49) Delivery placenta: spontaneous (17:54) Delivery cord: 3 umbilical vessels Episiotomy: none Delivery laceration: none Anesthesia: epidural Delivery comments: viable male infant rotated from OP to GRAHAM as , delivered over intact perineum at 17:49. Vigorous placed [id number] on mothers abdomen. Delayed cord clamping then cut by FOB with my guidance. Spontaneous daley delivery of intact placenta at 17:54. 3VC. Discarded. FF@U-2, small bleeding. No tears or lacerations. EBL 200cc. and mother left in stable condition in L&D. - Infant A at 1 minute: 8 at 5 minutes: 9 Gender: Male (8lbs 2oz, 3629 grams, 20.5")
[2019-01-19] MEDS: IBUPROFEN PO SCH (18:52)
[2019-01-19] MEDS ORDERED: SODIUM CHLORIDE FLUSH SYRINGE 10 ML IV NR (19:00)
[2019-01-19] MEDS: NORCO 5/325 PO PRN (20:41)
[2019-01-20 05:28] LABS: Hematocrit 27.7 % (30.3-42.9); Hemoglobin 9.1 gm/dl (10.1-14.3)
[2019-01-20] MEDS: NORCO 5/325 PO PRN ×3 (06:12→21:55)
[2019-01-20] MEDS: IBUPROFEN PO SCH ×3 (06:14→18:14)
--- NOTE | 2019-01-20 11:21 | Progress Note ---
Assessment and Plan A: day 1 S/P spontaneous vaginal delivery. Anemia secondary to and blood loss. P: Supplement with iron. Iron rich foods discussed with patient. Anticipate discharge tomorrow. Subjective - Subjective Date of service: 01/20/19 Principal diagnosis: day 1 S/P Interval history: day 1 S/P spontaneous vaginal delivery. Doing well. Patient reports small amount of lochia. Voiding without difficulty, ambulating well, and tolerating a regular diet. Patient denies headache, cough, shortness of breath, chest pain, abdominal pain, or leg pain. Patient reports: appetite normal, voiding normally, pain well controlled, flatus, ambulating normally, no dizzy ambulation, no nauseated [place]: doing well Objective - Vital Signs Latest vital signs: Vital Signs Temp Pulse Resp BP BP Pulse Ox 01/19/19 19:50 98.7 F 81 18 135/88 01/19/19 19:26 86 136/75 01/19/19 17:47 123 H 132/98 01/19/19 17:31 110 H 124/74 01/19/19 17:23 134 H 100 01/19/19 17:20 41 L 01/19/19 17:18 32 L 80 L 01/19/19 17:17 114 H 171/68 01/19/19 17:12 118 H 100 01/19/19 17:06 96 H 100 01/19/19 17:01 93 H 124/68 01/19/19 17:00 95 H 100 01/19/19 16:59 97.7 F 18 01/19/19 16:55 88 100 01/19/19 16:50 95 H 100 01/19/19 16:46 89 136/68 01/19/19 16:45 101 H 100 01/19/19 16:39 90 100 01/19/19 16:34 96 H 100 01/19/19 16:31 99 H 129/65 01/19/19 16:29 98 H 99 01/19/19 16:24 82 100 01/19/19 16:19 88 100 01/19/19 16:17 90 133/66 01/19/19 16:14 87 100 01/19/19 16:09 83 100 01/19/19 16:04 98 H 100 01/19/19 16:03 56 L 26 L 01/19/19 16:01 88 123/75 15/19 15:59 80 100 15/19 15:54 78 100 031519 15:49 81 100 1519 15:46 82 121/70 15/19 15:44 81 100 1519 15:39 76 100 15 15:34 85 100 15 15:32 89 121/71 01/19/19 15:29 75 99 15 15:24 82 99 15 15:19 83 98 15 15:16 83 111/60 01/19/19 15:14 76 98 01/19/19 15:09 91 H 99 01/19/19 15:03 88 99 01/19/19 15:02 82 112/64 01/19/19 14:59 83 98 01/19/19 14:54 81 98 01/19/19 14:49 84 98 01/19/19 14:46 78 92/55 90 01/19/19 14:44 79 97 01/19/19 14:38 78 98 01/19/19 14:34 79 97 01/19/19 14:31 83 123/67 01/19/19 14:29 79 98 01/19/19 14:23 82 97 01/19/19 14:19 79 98 01/19/19 14:17 76 120/63 01/19/19 14:14 76 98 01/19/19 14:09 83 98 01/19/19 14:04 82 98 01/19/19 14:02 80 122/65 01/19/19 13:58 84 100 01/19/19 13:53 85 100 1519 13:48 83 100 15 13:46 80 129/70 15/19 13:44 82 100 15 13:39 78 100 15 13:33 82 100 1519 13:30 79 124/65 15/19 13:28 80 126/67 100 1519 13:26 77 128/65 15/19 13:24 82 130/67 100 15/ 13:22 86 129/68 15/19 13:20 82 133/68 15/19 13:18 81 125/64 100 01/19/19 13:16 80 128/67 01/19/19 13:14 93 H 127/65 01/19/19 13:13 91 H 99 01/19/19 13:12 88 123/64 01/19/19 13:10 85 118/60 01/19/19 13:08 96 H 123/61 100 01/19/19 13:06 84 122/62 01/19/19 13:04 82 127/67 01/19/19 13:03 88 98 01/19/19 13:02 86 129/70 01/19/19 13:00 87 129/73 01/19/19 12:58 85 134/73 99 01/19/19 12:57 95 H 91 01/19/19 12:56 90 124/65 01/19/19 12:54 104 H 131/64 01/19/19 12:53 95 H 98 01/19/19 12:52 88 137/70 01/19/19 12:50 89 134/74 01/19/19 12:48 98 H 138/79 98 01/19/19 12:46 100 H 138/67 75 L 01/19/19 12:43 104 H 99 01/19/19 12:42 115 H 147/70 01/19/19 12:14 81 123/76 01/19/19 11:44 86 133/78 Intake and Output 01/19/19 01/20/19 01/20/19 23:59 07:59 15:59 Intake Total 19.8 Output Total 450 500 Balance -430.2 -500 Intake: IV 19.8 PITOCin/NS 30 UNIT/500ML 19.8 30 units In 500 ml @ 1 MILLIUNITS/MIN 1 mls/hr IV TITR ROBEL Rx#:[id number] Output: Urine 450 500 Void 450 500 Other: Total, Output Amount 450 500 # Voids Void 1 1 Estimated Blood Loss 200 - Exam Cardiovascular: Present: Regular rate, Normal S1, Normal S2 Lungs: Present: Clear to auscultation Abdomen: Present: normal appearance, soft, normal bowel sounds. Absent: distention, tenderness, guarding, rigidity Uterus: Present: normal, firm, fundal height below umbilicus. Absent: bogginess, tenderness Extremities: Present: normal, edema (mild pedal edema bilaterally). Absent: tenderness - Labs Labs: Abnormal lab results 01/20/19 Range/Units 05:01 Hgb 9.1 L (10.1-14.3) gm/dl Hct 27.7 L D (30.3-42.9) %
[2019-01-20] MEDS: FEOSOL PO SCH ×2 (11:54→21:55)
[2019-01-21] MEDS: IBUPROFEN PO SCH ×2 (02:22→12:51)
[2019-01-21] MEDS: NORCO 5/325 PO PRN (08:23)
[2019-01-21] MEDS: FEOSOL PO SCH (10:57)
--- NOTE | 2019-01-21 17:46 | Progress Note ---
Assessment and Plan A: day 2 S/P . Anemia due to and blood loss. Heart murmur. P: Patient insists on discharge today. Consulted with Dr. John re: patient and heart murmur heard on exam today. Dr. John states it is OK to discharge patient home today and have her follow up with cardiology as an outpatient. discharge instructions and warning signs discussed in detail with patient. Advised patient to take her vitamins and iron supplements at home. Advised patient to avoid driving, intercourse, lifting or heavy housework. Advised patient to follow up tomorrow 01/22/19 at [facility] for BP check and to get an outpatient cardiology referral for heart murmur. Patient states she will go to [facility] tomorrow for these things. Warning signs discussed with patient in detail. Patient voiced understanding of all instructions. Subjective - Subjective Date of service: 01/21/19 Principal diagnosis: day 2 S/P Interval history: day 2 S/P spontaneous vaginal delivery. Doing well. Patient reports small amount of lochia. Voiding without difficulty, ambulating well, and tolerating a regular diet. Patient denies headache, cough, shortness of breath, chest pain, dizziness, fatigue, abdominal pain, or leg pain. Patient insists on discharge today. Patient reports: appetite normal, voiding normally, pain well controlled, fla tus, ambulating normally, no dizzy ambulation, no nauseated : doing well Objective - Vital Signs Latest vital signs: Vital Signs Temp Pulse Resp BP 01/21/19 07:23 98.3 F 67 18 120/86 01/21/19 00:00 98.2 F 71 20 124/88 Intake and Output 01/21/19 01/21/19 01/21/19 07:59 15:59 23:59 Intake Total 840 Balance 840 Intake: Oral 840 Other: Total, Intake Amount 480 # Voids Void 1 - Exam Cardiovascular: Present: Regular rate, Normal S1, Normal S2, Other (murmur heard) Lungs: Present: Clear to auscultation Abdomen: Present: normal appearance, soft, normal bowel sounds. Absent: distention, tenderness, guarding, rigidity Uterus: Present: normal, firm, fundal height below umbilicus. Absent: bogginess, tenderness Extremities: Present: normal. Absent: tenderness, edema
--- NOTE | 2019-01-21 17:50 | Discharge Summary ---
<JEREMY BOWEN - Last Filed: 01/21/19 17:47> Providers - Providers Date of Admission: 01/19/19 04:02 Date of discharge: 01/21/19 Attending physician: LENARD POTTS MD None Primary care physician: LENARD POTTS MD Hospitalization Reason for admission: active labor, rupture of membranes Delivery: Episiotomy: midline Laceration: none Other procedures: none Discharge diagnosis: IUP at term delivered [place] baby: male Pertinent studies: Labs Hospital course: Normal hospital course. Condition at discharge: Stable Disposition: DC-01 TO HOME OR SELFCARE - Discharge Diagnoses (1) Term delivered Status: Acute (2) Anemia due to blood loss Status: Acute Plan - Provider Discharge Summary Activity: routine, no sex for 6 weeks, no heavy lifting 4 weeks, no strenuous exercise Diet: routine Instructions: routine Additional instructions: Continue your vitamins and iron supplements at home. Call your doctor immediately for: * Fever > 100.5 * Heavy vaginal bleeding ( >1 pad per hour) * Severe persistent headache * Shortness of breath * Reddened, hot, painful area to leg or breast - Follow up plan Follow up: LENARD POTTS MD [Primary Care Provider] - 01/22/19 Forms: [facility] Discharge Summary <JULIETH PHELPS - Last Filed: 01/22/19 01:24> Providers - Providers Date of Admission: 01/19/19 04:02 Attending physician: LENARD POTTS MD Primary care physician: LENARD POTTS MD Hospitalization Pertinent studies: Laboratory Tests 01/19/19 01/19/19 01/19/19 01:35 01:35 01:35 WBC 11.6 H RBC 3.89 Hgb 11.3 Hct 34.1 MCV 88 MCH 29 MCHC 33 RDW 15.3 H Plt Count 324 RPR Nonreactive Blood Type A POSITIVE Antibody Screen Negative 01/20/19 05:01 WBC RBC Hgb 9.1 L Hct 27.7 L D MCV MCH MCHC RDW Plt Count RPR Blood Type Antibody Screen - Discharge Diagnoses (1) Anemia due to blood loss Status: Acute Comment: Asymptomatic. Plan discharge home with supplemental iron. Plan - Provider Discharge Summary Additional instructions: [] Smoking cessation referral if applicable(refer to patient education folder for contact #) [] Refer to [facility] Booklet Call your doctor immediately for: * Fever > 100.5 * Heavy vaginal bleeding ( >1 pad per hour) * Severe persistent headache * Shortness of breath * Reddened, hot, painful area to leg or breast * Drainage or odor from incision. * Keep incision clean and dry at all times and follow doctor's instructions regarding bathing/showering
[2019-01-21 18:10] VITALS: BP 136/76
== END 2019-01-21 19:20 | disposition home or self-care (01) | DRG 775 ==
LOC: TRG 20:57 → LD 01-19 04:02 → OB 01-19 19:50
PROVIDERS: ADMIT Obstetrics & Gynecology; ATTEND Obstetrics & Gynecology
PROC: 10E0XZZ Delivery of Products of Conception, External Approach (ICD-10-PCS; principal; 2019-01-19)
PROC: 3E0R3BZ Introduction of Anesthetic Agent into Spinal Canal, Percutaneous Approach (ICD-10-PCS; 2019-01-19)
PROC: 00HU33Z Insertion of Infusion Device into Spinal Canal, Percutaneous Approach (ICD-10-PCS; 2019-01-19)
DX: O76 Abnormality in fetal heart rate and rhythm complicating labor and delivery (principal); Z37.0 Single live birth; O99.02 Anemia complicating childbirth; D62 Acute posthemorrhagic anemia; O36.63X0 Maternal care for excessive fetal growth, third trimester, not applicable or unspecified; Z3A.38 38 weeks gestation of pregnancy; Z79.899 Other long term (current) drug therapy
CPT/HCPCS: 36415; 59025; 85014; 85018; 85027; 86592; 86850; 86900; 86901; G0378; A6250; J0290; J0595; J2405; J2590; J3010; J7120; Q0177